=== PATIENT | female | born 1980 | race Two or more races ===

== ENCOUNTER 2017-11-23 10:44 | Day surgery (SDC) | payer BC, OTHER ==
[~2017-11-23 10:44] MED LIST: LIDOCAINE 1% PF 2 ML VIAL. ID; ONDANSETRON PF 4 MG/2 ML VIAL. IV; fentaNYL PF VIAL 100 MCG/2 ML VIAL IV; miSOPROStol 200MCG TAB 200 MCG TABLET
[2017-11-23] MEDS ORDERED: LIDOCAINE 2% PF Vial for OR 5 ML VIAL. (11:24)
[2017-11-23] MEDS ORDERED: ONDANSETRON PF 4 MG/2 ML VIAL. (11:24)
[2017-11-23] MEDS ORDERED: FAMOTIDINE 20 MG/2 ML VIAL (11:24)
[2017-11-23] MEDS ORDERED: PROPOFOL 20 ML IV (11:24)
[2017-11-23] MEDS ORDERED: fentaNYL PF VIAL 100 MCG/2 ML VIAL ×3 (11:24→13:22)
[2017-11-23] MEDS ORDERED: DEXAMETHASONE SOD PHOS 20 MG/5 ML VIAL. (11:24)
[2017-11-23] MEDS ORDERED: MIDAZOLAM HCL/PF 2 MG/2 ML VIAL. (11:24)
[2017-11-23] MEDS: IV RINGERS,LACTATED 1000ML 1,000 ML IV (11:58)
[2017-11-23 12:13] LABS: ADD MAN DIFF? NO; BASO % 0 % (0-3); EOS % 1 % (0-3); HEMOGLOBIN 12.2 g/dL (12.0-15.5); LYMPH # 1.2 x10^3/uL (1.0-4.8); LYMPH % 24 % (24-48); MEAN CORPUSCULAR HEMOGLOBIN 32 pg (25-35); MEAN CORPUSCULAR HGB CONC 35 g/dL (31-37); MEAN CORPUSCULAR VOLUME 93 fL (79-100); MONO # 0.4 x10^3/uL (0.0-1.1); MONO % 7 % (0-9); NEUT # 3.3 x10^3uL (1.8-7.7); NEUT % 67 % (31-73); PLATELET COUNT 154 x10^3/uL (140-400); RED BLOOD COUNT 3.76 x10^6/uL (3.50-5.40); RED CELL DISTRIBUTION WIDTH 13.4 % (11.5-14.5); WHITE BLOOD COUNT 4.9 x10^3/uL (4.0-11.0)
[2017-11-23] MEDS ORDERED: OXYTOCIN 10 UNIT/ML VIAL. (12:34)
[2017-11-23] MEDS ORDERED: SEVOFLURANE 16 TO 30 MINUTES. IH (12:36)
[2017-11-23] MEDS ORDERED: PROCHLORPERAZINE 10 MG/2 ML VIAL. (12:42)
[2017-11-23] MEDS: OXYTOCIN 10 UNIT/ML VIAL. (12:53)
[2017-11-23] MEDS: PROCHLORPERAZINE 10 MG/2 ML VIAL. IV (13:06)
[2017-11-23] MEDS: fentaNYL PF VIAL 100 MCG/2 ML VIAL IV ×4 (13:07→13:36)
[2017-11-23] MEDS ORDERED: HYDROcodone/APAP 5/325MG 1 TAB TABLET (13:22)
[2017-11-23] MEDS: HYDROcodone/APAP 5/325MG 1 TAB TABLET PO (13:27)
== END 2017-11-23 14:20 | disposition home or self-care (01) ==
LOC: SURG 10:44
DX: O03.4 Incomplete spontaneous abortion without complication (principal); Z88.5 Allergy status to narcotic agent; J45.909 Unspecified asthma, uncomplicated; Z87.440 Personal history of urinary (tract) infections; Z98.51 Tubal ligation status
CPT/HCPCS: 36415; 85025; 86850; 86900; 86901; 88305; A7015; C1769; J0780; J1100; J2250; J2405; J2590; J2704; J3010; S0028

== ENCOUNTER 2019-02-19 19:55 | Emergency (ER) | payer BC, OTHER ==
[~2019-02-19] VITALS: Ht 167.6 cm; Wt 82.6 kg
[~2019-02-19 19:55] MED LIST changes: +ALBU2.5V8 INH; +DOXY50CA PO; +HYDR-3164 PO; +IBUP200T44 PO; -LIDOCAINE 1% PF 2 ML VIAL. ID; +METH0.2T36 PO; +METR500T PO; -ONDANSETRON PF 4 MG/2 ML VIAL. IV; -fentaNYL PF VIAL 100 MCG/2 ML VIAL IV; -miSOPROStol 200MCG TAB 200 MCG TABLET
[2019-02-19] MEDS ORDERED: ONDANSETRON PF 4 MG/2 ML VIAL. IV ONE (20:45)
[2019-02-19] MEDS ORDERED: fentaNYL PF VIAL 100 MCG/2 ML VIAL IV ONE ×2 (20:45→23:15)
[2019-02-19] MEDS ORDERED: IV NORMAL SALINE 1000ML BAG 1,000 ML IV ONE (20:45)
[2019-02-19 20:59] LABS: BASO # 0.1 x10^3/uL (0.0-0.2); BASO % 1 % (0-3); EOS # 0.1 x10^3/uL (0.0-0.7); EOS % 1 % (0-3); HEMATOCRIT 37.3 % (36.0-47.0); HEMOGLOBIN 12.5 g/dL (12.0-15.5); LYMPH % 14 % (24-48); MEAN CORPUSCULAR HEMOGLOBIN 31 pg (25-35); MEAN CORPUSCULAR HGB CONC 34 g/dL (31-37); MEAN CORPUSCULAR VOLUME 92 fL (79-100); MONO # 0.5 x10^3/uL (0.0-1.1); MONO % 4 % (0-9); NEUT # 11.1 x10^3/uL (1.8-7.7); NEUT % 81 % (31-73); PLATELET COUNT 186 x10^3/uL (140-400); RED BLOOD COUNT 4.05 x10^6/uL (3.50-5.40); RED CELL DISTRIBUTION WIDTH 13.9 % (11.5-14.5); WHITE BLOOD COUNT 13.7 x10^3/uL (4.0-11.0)
[2019-02-19 21:14] LABS: CALCIUM 9.3 mg/dL (8.5-10.1); CREATININE 0.7 mg/dL (0.6-1.0); GFR 93.2; POTASSIUM 3.7 mmol/L (3.5-5.1)
[2019-02-19 21:20] LABS: ALBUMIN 3.6 g/dL (3.4-5.0); ALBUMIN/GLOBULIN RATIO 0.9 (1.0-1.7); TOTAL BILIRUBIN 0.2 mg/dL (0.2-1.0); TOTAL PROTEIN 7.5 g/dL (6.4-8.2)
[2019-02-19 22:11] LABS: BILIRUBIN,URINE NEGATIVE (NEG); CLARITY,URINE CLEAR; COLOR,URINE YELLOW; NITRITE,URINE NEGATIVE (NEG); PROTEIN,URINE NEGATIVE (NEG-TRACE); UROBILINOGEN,URINE 0.2 mg/dL (0.2 mg/dL)
[2019-02-19 22:17] LABS: BACTERIA,URINE MOD /HPF (0-FEW); RBC,URINE RARE /HPF (0-2); SQUAMOUS EPITHELIAL CELL,UR MOD /LPF
[2019-02-19 22:19] LABS: BARBITURATES NEG (NEG); BENZODIAZEPINES NEG (NEG); CANNABINOIDS NEG (NEG); COCAINE NEG (NEG); METHADONE NEG (NEG); OPIATES NEG (NEG); PHENCYCLIDINE NEG (NEG)
[2019-02-19 22:20] LABS: AMPHETAMINE/METHAMPHETAMINE NEG (NEG)
--- NOTE | 2019-02-19 22:39 | PHYS DOC ---
Past Medical History Past Medical History: No Pertinent History Past Surgical History: Tubal ligation Additional Past Surgical Histo: REVERSAL TUBAL Alcohol Use: None Drug Use: None Adult General Chief Complaint Chief Complaint: ABDOMINAL PAIN HPI HPI Patient is a 38 year old female with new diagnosis of gallstones who presents to the ED today complaining of 10 out of 10 right upper quadrant abdominal pain that has been going on for 1 month and has increasingly gotten worse. She states she was seen at [facility] a month ago and was informed she needs to follow-up with the general surgeon, she states she has an appointment tomorrow at 3 PM but could not wait until then. She presents today hoping we can remove her gallstones. Denies any nausea, vomiting. She states she is currently on hydrocodone as needed for pain. Review of Systems Review of Systems Constitutional: Denies fever or chills [] Eyes: Denies change in visual acuity, redness, or eye pain [] HENT: Denies nasal congestion or sore throat [] Respiratory: Denies cough or shortness of breath [] Cardiovascular: No additional information not addressed in HPI [] GI: Reports RUQ pain, denies nausea, vomiting, bloody stools or diarrhea [] : Denies dysuria or hematuria [] Musculoskeletal: Denies back pain or joint pain [] Integument: Denies rash or skin lesions [] Neurologic: Denies headache, focal weakness or sensory changes [] All other systems were reviewed and found to be within normal limits, except as documented in this note. Current Medications Current Medications Current Medications Medications (Trade) Dose Ordered Sig/[facility] Start Time Stop Time Status Last Admin Dose Admin Fentanyl Citrate (Fentanyl 2ml Vial) 75 mcg 1X ONCE 02/19/19 23:00 02/19/19 23:01 UNV Ondansetron HCl (Zofran) 4 mg 1X ONCE 02/19/19 20:45 02/19/19 20:46 DC 02/19/19 21:07 4 MG Sodium Chloride 1,000 ml @ 1,000 mls/hr 1X ONCE 02/19/19 20:45 02/19/19 21:44 DC 02/19/19 21:07 1,000 MLS/HR Allergies Allergies Allergies Coded Allergies Type Severity Reaction Last Updated Verified morphine Allergy Intermediate RASH, NAUSEA, VOMITING 11/23/17 Yes Physical Exam Physical Exam Constitutional: Well developed, well nourished, no acute distress, non-toxic appearance. [] HENT: Normocephalic, atraumatic, bilateral external ears normal, oropharynx moist, no oral exudates, nose normal. [] Eyes: PERRLA, EOMI, conjunctiva normal, no discharge. [] Neck: Normal range of motion, no tenderness, supple, no stridor. [] Cardiovascular:Heart rate regular rhythm, no murmur [] Lungs & Thorax: Bilateral breath sounds clear to auscultation [] Abdomen: Bowel sounds normal, soft, tenderness the right upper quadrant with negative Muir sign, no masses, no pulsatile masses. [] Skin: Warm, dry, no erythema, no rash. [] Back: No tenderness, no CVA tenderness. [] Extremities: No tenderness, no cyanosis, no clubbing, ROM intact, no edema. [] Neurologic: Alert and oriented X 3, normal motor function, normal sensory function, no focal deficits noted. [] Psychologic: Affect normal, judgement normal, mood normal. [] Current Patient Data Vital Signs Vital Signs Date Time Temp Pulse Resp B/P (MAP) Pulse Ox O2 Delivery O2 Flow Rate FiO2 02/19/19 22:15 63 16 103/58 (73) 100 Room Air 02/19/19 20:12 98.4 98.4 Lab Values Laboratory Tests Test 02/19/19 20:55 02/19/19 22:05 White Blood Count 13.7 x10^3/uL (4.0-11.0) H Red Blood Count 4.05 x10^6/uL (3.50-5.40) Hemoglobin 12.5 g/dL (12.0-15.5) Hematocrit 37.3 % (36.0-47.0) Mean Corpuscular Volume 92 fL (79-100) Mean Corpuscular Hemoglobin 31 pg (25-35) Mean Corpuscular Hemoglobin Concent 34 g/dL (31-37) Red Cell Distribution Width 13.9 % (11.5-14.5) Platelet Count 186 x10^3/uL (140-400) Neutrophils (%) (Auto) 81 % (31-73) H Lymphocytes (%) (Auto) 14 % (24-48) L Monocytes (%) (Auto) 4 % (0-9) Eosinophils (%) (Auto) 1 % (0-3) Basophils (%) (Auto) 1 % (0-3) Neutrophils # (Auto) 11.1 x10^3/uL (1.8-7.7) H Lymphocytes # (Auto) 2.0 x10^3/uL (1.0-4.8) Monocytes # (Auto) 0.5 x10^3/uL (0.0-1.1) Eosinophils # (Auto) 0.1 x10^3/uL (0.0-0.7) Basophils # (Auto) 0.1 x10^3/uL (0.0-0.2) Sodium Level 144 mmol/L (136-145) Potassium Level 3.7 mmol/L (3.5-5.1) Chloride Level 105 mmol/L (98-107) Carbon Dioxide Level 27 mmol/L (21-32) Anion Gap 12 (6-14) Blood Urea Nitrogen 13 mg/dL (7-20) Creatinine 0.7 mg/dL (0.6-1.0) Estimated GFR (Cockcroft-Gault) 93.2 BUN/Creatinine Ratio 19 (6-20) Glucose Level 132 mg/dL (70-99) H Calcium Level 9.3 mg/dL (8.5-10.1) Total Bilirubin 0.2 mg/dL (0.2-1.0) Aspartate Amino Transferase (AST) 32 U/L (15-37) Alanine Aminotransferase (ALT) 32 U/L (14-59) Alkaline Phosphatase 124 U/L (46-116) H Total Protein 7.5 g/dL (6.4-8.2) Albumin 3.6 g/dL (3.4-5.0) Albumin/Globulin Ratio 0.9 (1.0-1.7) L Lipase 126 U/L (73-393) Ethyl Alcohol Level < 10 mg/dL (0-10) Urine Collection Type Unknown Urine Color Yellow Urine Clarity Clear Urine pH 7.0 Urine Specific [place] <=1.005 Urine Protein Negative mg/dL (NEG-TRACE) Urine Glucose (UA) Negative mg/dL (NEG) Urine Ketones (Stick) Negative mg/dL (NEG) Urine Blood Negative (NEG) Urine Nitrite Negative (NEG) Urine Bilirubin Negative (NEG) Urine Urobilinogen Dipstick 0.2 mg/dL (0.2 mg/dL) Urine Leukocyte Esterase Trace (NEG) Urine RBC Rare /HPF (0-2) Urine WBC 5-10 /HPF (0-4) Urine Squamous Epithelial Cells Mod /LPF Urine Bacteria Mod /HPF (0-FEW) Urine Mucus Slight /LPF Urine Opiates Screen Neg (NEG) Urine Methadone Screen Neg (NEG) Urine Barbiturates Neg (NEG) Urine Phencyclidine Screen Neg (NEG) Urine Amphetamine/Methamphetamine Neg (NEG) Urine Benzodiazepines Screen Neg (NEG) Urine Cocaine Screen Neg (NEG) Urine Cannabinoids Screen Neg (NEG) Urine Ethyl Alcohol Neg (NEG) Laboratory Tests 02/19/19 20:55 Laboratory Tests 02/19/19 20:55 EKG EKG [] Radiology/Procedures Radiology/Procedures []PROCEDURE: ABDOMEN LTD Ultrasound of the right upper quadrant of the abdomen 02/19/2019 CLINICAL HISTORY: Right upper quadrant abdominal pain. TECHNIQUE: A Real-time ultrasound examination of the right upper quadrant abdomen was performed. Multiple images were obtained. FINDINGS: The gallbladder is slightly contracted. Echogenic gallstones are seen within the gallbladder. The gallbladder wall thickness is within normal limits. No pericholecystic fluid is seen. The common bile duct measures 7 mm in diameter which is within normal limits. The liver is normal in size measuring 17 cm in length. Increased echogenicity of the liver parenchyma seen consistent with fatty infiltration. The right kidney and visualized portions of pancreas are within normal limits. No free fluid is seen. IMPRESSION: 1. Cholelithiasis. 2. Fatty infiltration of the liver. Electronically signed by: Bertrand Garcia MD (02/19/2019 10:36 PM) [facility] DICTATED and SIGNED BY: BERTRAND GARCIA MD DATE: 02/19/19 2236 Course & Med Decision Making Course & Med Decision Making Pertinent Labs and Imaging studies reviewed. (See chart for details) This is a 38-year-old female patient who presents to the ED today complaining of right upper quadrant abdominal pain that has been going on for 1 month, patient was diagnosed with gallstones a month ago, she has an appointment with the general surgeon tomorrow at 3 PM, she could not wait until then she states her pain has continued. CBC with a WBC of 13.7, CMP with normal AST, normal AST, ALK 127. Vitals are stable, Right upper quadrant limited ultrasound noted for cholelithiasis no cholecystitis Patient has an appointment with a general surgeon tomorrow at 3 PM. Was advised to go home and follow-up. Dragon Disclaimer Dragon Disclaimer This electronic medical record was generated, in whole or in part, using a voice recognition dictation system. Departure Departure Impression: Primary Impression: Gallstone Disposition: ADMITTED INPATIENT Condition: STABLE Referrals: EUNICE ORDONEZ MD (PCP) Follow-up with the general surgeon on the one provided BETTY TURNER MD follow up with your general surgeon or the one we have provided Patient Instructions: Cholelithiasis Additional Instructions: You were seen in the emergency room and noted to have gallstones. You have an appointment with your general surgeon tomorrow, ensure you follow-up. Take the medicine you have at home as needed for pain. Scripts Hydrocodone/Apap 5-325 (NORCO 5-325 TABLET) 1 Each Tablet 1-2 TAB PO Q4-6HRS PRN for PAIN MDD 8, #20 TAB Prov: JOEL SKY DIGITAL MEDIA COORDINATOR 02/19/19 Problem Qualifiers Primary Impression: Gallstone Cholecystitis presence: without cholecystitis Biliary obstruction: without biliary obstruction Qualified Codes: K80.20 - Calculus of gallbladder without cholecystitis without obstruction JOEL SKY DIGITAL MEDIA COORDINATOR Feb 19, 2019 22:39
[2019-02-19] MEDS ORDERED: HYDR-3164 PO (23:06)
[2019-02-19 23:30] VITALS: BP 109/56
== END 2019-02-19 23:35 | disposition home or self-care (01) ==
LOC: ER 19:55
DX: K80.20 Calculus of gallbladder without cholecystitis without obstruction (principal); K76.0 Fatty (change of) liver, not elsewhere classified; Z98.51 Tubal ligation status; Z88.5 Allergy status to narcotic agent
CPT/HCPCS: 36415; 76705; 80053; 80307; 81001; 83690; 85025; 96374; 96375; 96376; 99285; G0480; J2405; J3010; J7030

== ENCOUNTER 2020-09-16 19:42 | Inpatient (IN) | payer BC, OTHER ==
[~2020-09-16] VITALS: Ht 170.2 cm; Wt 91.6 kg
[2020-09-16] MEDS ORDERED: methylPREDNISolone SOD SUCC PF 125 MG/2 ML VIAL. ONE (19:53)
[2020-09-16] MEDS ORDERED: FAMOTIDINE 20 MG/2 ML VIAL ONE (19:53)
[2020-09-16] MEDS ORDERED: diphenhydrAMINE 50 MG/ML VIAL ONE (19:53)
[2020-09-16] MEDS ORDERED: DEXAMETHASONE SOD PHOS 20 MG/5 ML VIAL. IV ONE (20:00)
[2020-09-16] MEDS ORDERED: IV NORMAL SALINE 1000ML BAG 1,000 ML IV ONE (20:00)
[2020-09-16] MEDS ORDERED: FAMOTIDINE 20 MG/2 ML VIAL IVP ONE (20:00)
[2020-09-16] MEDS ORDERED: diphenhydrAMINE 50 MG/ML VIAL IVP ONE ×2 (20:00→20:45)
[2020-09-16 21:57] LABS: BASO # 0.1 x10^3/uL (0.0-0.2); BASO % 1 % (0-3); EOS # 0.1 x10^3/uL (0.0-0.7); EOS % 1 % (0-3); HEMATOCRIT 37.7 % (36.0-47.0); HEMOGLOBIN 12.8 g/dL (12.0-15.5); LYMPH % 17 % (24-48); MEAN CORPUSCULAR HEMOGLOBIN 32 pg (25-35); MEAN CORPUSCULAR HGB CONC 34 g/dL (31-37); MEAN CORPUSCULAR VOLUME 94 fL (79-100); MONO # 0.5 x10^3/uL (0.0-1.1); MONO % 5 % (0-9); NEUT # 8.9 x10^3/uL (1.8-7.7); NEUT % 77 % (31-73); PLATELET COUNT 202 x10^3/uL (140-400); RED BLOOD COUNT 4.03 x10^6/uL (3.50-5.40); RED CELL DISTRIBUTION WIDTH 13.4 % (11.5-14.5); WHITE BLOOD COUNT 11.7 x10^3/uL (4.0-11.0)
--- NOTE | 2020-09-16 22:01 | PHYS DOC ---
Past Medical History Past Medical History: No Pertinent History, Other Additional Past Medical Histor: 1 miscarriage Past Surgical History: Tubal ligation Additional Past Surgical Histo: REVERSAL TUBAL Smoking Status: Never Smoker Alcohol Use: None Drug Use: None General Adult EDM: Chief Complaint: ALLERGIC REACTION HPI: HPI: 39 yo F presents to the ed with c/o pruritic rash over right arm and facial swelling/redness that started Monday night. States she ate shrimp/tilapia at a friends house on Monday and was outside on Monday. Has a h/o poison cristy, no history of angioedema, anaphylaxis or similar allergic reaction. Was seen by Dr. Paniagua yesterday and started on prednisone 50 mg, has not taken this medication today. Was also given a shot in the arm yesterday. Is not taking any lisinopril. Reports she is , has taken 4 home test. Has not had any ultrasound to confirm IUP. History of tubal ligation with reversal. Does not have any difficulties breathing, drooling, spitting, speech changes, abdominal or back pain, abdominal vaginal discharge/bleeding, dysuria, hematuria or flank pain. Patient with pictures of her face and her iPhone from Monday and Monday. Review of Systems: Review of Systems: Constitutional: Denies fever or chills. [] Eyes: Denies change in visual acuity or vision loss HENT: Denies nasal congestion or sore throat or drooling or speech changes Respiratory: Denies cough or shortness of breath or dyspnea or increased work of breathing Cardiovascular: Denies chest pain or edema. [] GI: Denies abdominal pain, nausea, vomiting, bloody stools or diarrhea. [] : Denies dysuria or hematuria Musculoskeletal: Denies back pain or joint pain. [] Integument: Denies diaphoresis, blisters or desquamation Neurologic: Denies headache, focal weakness or sensory changes. [] Endocrine: Denies polyuria or polydipsia. [] Lymphatic: Denies swollen glands. [] Psychiatric: Denies depression or anxiety. [] Heart Score: C/O Chest Pain: No Risk Factors: Risk Factors: DM, Current or recent (<one month) smoker, HTN, HLP, family history of CAD, obesity. Risk Scores: Score 0 - 3: 2.5% MACE over next 6 weeks - Discharge Home Score 4 - 6: 20.3% MACE over next 6 weeks - Admit for Clinical Observation Score 7 - 10: 72.7% MACE over next 6 weeks - Early Invasive Strategies Current Medications: Current Medications Medications (Trade) Dose Ordered Sig/[facility] Start Time Stop Time Status Last Admin Dose Admin Dexamethasone Sodium Phosphate (Decadron) 10 mg 1X ONCE 09/16/20 20:00 09/16/20 20:01 DC 09/16/20 20:10 10 MG Diphenhydramine HCl (Benadryl) 50 mg 1X ONCE 09/16/20 20:45 09/16/20 20:46 DC 09/16/20 20:42 50 MG Famotidine (Pepcid Vial) 20 mg STK-MED ONCE 09/16/20 19:53 09/16/20 19:54 DC Methylprednisolone Sodium Succinate (SOLU-Medrol 125MG VIAL) 125 mg STK-MED ONCE 09/16/20 19:53 09/16/20 19:54 DC Sodium Chloride 1,000 ml @ 1,000 mls/hr 1X ONCE 09/16/20 20:00 09/16/20 20:59 DC 09/16/20 20:02 1,000 MLS/HR Allergies: Allergies: Allergies Coded Allergies Type Severity Reaction Last Updated Verified morphine Allergy Intermediate RASH, NAUSEA, VOMITING 11/23/17 Yes Physical Exam: PE: Constitutional: Well developed, well nourished, no acute distress, non-toxic appearance. HENT: Normocephalic, atraumatic, phone pictures with progressive worsening facial swelling over both cheeks and upper eyelids worse over right eye than left-right eye almost swollen shut, uvula midline, no oropharyngeal edema, no oral lesions or ulcers Eyes: EOMI, conjunctiva normal, no discharge. Neck: Normal range of motion, supple, Cardiovascular: S1/2 present, regular rhythm Lungs & Thorax: Speaking in full sentences, bilateral equal chest rise, no tachypnea or increased work of breathing, no drooling or muffled speech Abdomen: soft, no tenderness, Skin: Warm, dry, erythematous rash over mid arm, negative Nikolsky sign Back: No tenderness, no CVA tenderness. [] Extremities: No tenderness, no cyanosis, no lower extremity edema Neurologic: Alert and oriented X 3, normal motor function, normal sensory function, no focal deficits noted. [] Psychologic: Affect normal, judgement normal, mood normal. [] Current Patient Data: Labs: Laboratory Tests Test 09/16/20 19:52 POC Urine HCG, Qualitative Hcg positive (Negative) Vital Signs: Vital Signs Date Time Temp Pulse Resp B/P (MAP) Pulse Ox O2 Delivery O2 Flow Rate FiO2 09/16/20 21:00 72 16 111/62 (78) 100 Room Air 09/16/20 19:45 98.2 98.2 EKG: EKG: [] Radiology/Procedures: Radiology/Procedures: [] Course & Med Decision Making: Course & Med Decision Making Pertinent Labs and Imaging studies reviewed. (See chart for details) Concern for allergic reaction with angioedema that failed outpatient antibiotics, symptoms have been worsening since Monday. Patient not on any lisinopril. Airway patent with clear speech, no drooling. Some improvement wi th Pepcid, dexamethasone and Benadryl in ED. Labs pending for early . Will order ultrasound in am (has no active abdominal/back/vaginal bleeding or vaginal discharge-no indication for emergent imaging at this time). Hypokalemia on labs, replacement started in ED. Will admit for further medical management. Patient stable at time of admission and agrees with this plan. I have spoken with the patient and/or caregivers. I have explained the patient's condition, diagnosis and treatment plan based on the information available to me at this time. I have answered the patient's and/or caregivers questions and answered any concerns. The patient and/or caregivers have as good an understanding of the patient's diagnosis, condition and treatment plan as can be expected at this point. The patient has been stabilized within the capability of the emergency department. The patient will be transported for further care and management or will be moved to an observation or inpatient service. I have communicated with the staff or medical practitioner taking over this patient's care. Dragon Disclaimer: Dragmelo Disclaimer: This electronic medical record was generated, in whole or in part, using a voice recognition dictation system. Departure Departure Impression: Primary Impression: Angioedema Additional Impressions: Positive test Hypokalemia Disposition: ADMITTED INPT THIS HOSP Admitting Physician: EDEL (Dr. Murillo) Condition: STABLE Referrals: EUNICE ORDONEZ MD (PCP) LUDIN MILLER DO Sep 16, 2020 22:01
[2020-09-16 22:06] LABS: PROTHROMBIN TIME PATIENT 11.1 SEC (11.7-14.0)
[2020-09-16 22:15] LABS: ALBUMIN 3.4 g/dL (3.4-5.0); ALBUMIN/GLOBULIN RATIO 0.8 (1.0-1.7); CALCIUM 9.3 mg/dL (8.5-10.1); CREATININE 0.6 mg/dL (0.6-1.0); GFR 110.7; TOTAL BILIRUBIN 0.2 mg/dL (0.2-1.0); TOTAL PROTEIN 7.5 g/dL (6.4-8.2)
[2020-09-16 22:19] LABS: POTASSIUM 2.8 mmol/L (3.5-5.1)
[2020-09-16] MEDS ORDERED: POTASSIUM BICARB 20 MEQ EFFERVESCENT TABLET. PO ONE (23:00)
--- NOTE | 2020-09-17 00:41 | NUR ---
Dr. Murillo notified of patient c/o pain to face and BLE numbness. New order for 1x dose benadryl, recheck labs in AM.
[2020-09-17] MEDS ORDERED: diphenhydrAMINE 50 MG/ML VIAL IVP ONE (01:00)
[2020-09-17 03:00] VITALS: BP 106/60
[2020-09-17 06:12] LABS: BASO % 0 % (0-3); EOS % 0 % (0-3); HEMATOCRIT 34.8 % (36.0-47.0); HEMOGLOBIN 11.9 g/dL (12.0-15.5); LYMPH # 0.8 x10^3/uL (1.0-4.8); LYMPH % 9 % (24-48); MEAN CORPUSCULAR HEMOGLOBIN 32 pg (25-35); MEAN CORPUSCULAR HGB CONC 34 g/dL (31-37); MEAN CORPUSCULAR VOLUME 93 fL (79-100); MONO # 0.1 x10^3/uL (0.0-1.1); MONO % 1 % (0-9); NEUT # 8.5 x10^3/uL (1.8-7.7); NEUT % 90 % (31-73); PLATELET COUNT 195 x10^3/uL (140-400); RED BLOOD COUNT 3.73 x10^6/uL (3.50-5.40); WHITE BLOOD COUNT 9.4 x10^3/uL (4.0-11.0)
[2020-09-17 06:34] LABS: ALBUMIN 2.8 g/dL (3.4-5.0); ALBUMIN/GLOBULIN RATIO 0.7 (1.0-1.7); CALCIUM 8.4 mg/dL (8.5-10.1); CREATININE 0.6 mg/dL (0.6-1.0); GFR 110.7; POTASSIUM 3.9 mmol/L (3.5-5.1); TOTAL BILIRUBIN 0.2 mg/dL (0.2-1.0); TOTAL PROTEIN 6.7 g/dL (6.4-8.2)
[2020-09-17 07:00] VITALS: BP 111/63
--- NOTE | 2020-09-17 08:05 | PDOC1 ---
History and Physical Date of Service: DOS: DATE: 09/17/20 TIME: 07:57 Chief Complaint: Chief Complain: Facial swelling and redness History of Present Illness: HPI: 39 yo F presents to the ed with c/o pruritic rash over right arm and facial swelling/redness that started Monday night. States she ate shrimp/tilapia at a friends house on Monday and was outside on Monday. Has a h/o poison cristy, no history of angioedema, anaphylaxis or similar allergic reaction. Was seen by Dr. Paniagua yesterday and started on prednisone 50 mg, has not taken this medication today. Was also given a shot in the arm yesterday. Is not taking any lisinopril. Reports she is , has taken 4 home test. Has not had any ultrasound to confirm IUP. History of tubal ligation with reversal. Does not have any difficulties breathing, drooling, spitting, speech changes, abdominal or back pain, abdominal vaginal discharge/bleeding, dysuria, hematuria or flank pain. Patient with pictures of her face and her iPhone from Monday and Monday. Patient seen and examined this morning on the barraza. Patient continues to have some pressure and shortness of breath while lying flat. There is no stridor or wheezing audible. She says the swelling has decreased in size and there is some pressure in the back of her neck in front of her head still. She would like to stay 1 more day because she is feels uncomfortable with taking deep breaths and while she is at home she is not able to breathe. Past Medical/Surgical History: PMH/PSH: Past Medical History: No Pertinent History,1 miscarriage Past Surgical History: Tubal ligation, REVERSAL TUBAL Allergies: Allergies: Coded Allergies: shrimp (Verified Allergy, Severe, 09/17/20) unknown if current angioedema related to shrimp consumption morphine (Verified Allergy, Intermediate, RASH, NAUSEA, VOMITING, 11/23/17) Family History: Family History: Reviewed with no relevant findings Social History: Social History: Smoking Status: Never Smoker Alcohol Use: None Drug Use: None Current Medications: Current Medications Current Medications Dexamethasone Sodium Phosphate (Decadron) 10 mg 1X ONCE IV Last administered o n 09/16/20at 20:10; Start 09/16/20 at 20:00; Stop 09/16/20 at 20:01; Status DC Diphenhydramine HCl (Benadryl) 25 mg 1X ONCE IVP ; Start 09/16/20 at 20:00; Stop 09/16/20 at 20:01; Status Cancel Famotidine (Pepcid Vial) 20 mg 1X ONCE IVP Last administered on 09/16/20at 20:04; Start 09/16/20 at 20:00; Stop 09/16/20 at 20:01; Status DC Sodium Chloride 1,000 ml @ 1,000 mls/hr 1X ONCE IV Last administered on 09/16/20at 20:02; Start 09/16/20 at 20:00; Stop 09/16/20 at 20:59; Status DC Diphenhydramine HCl (Benadryl) 50 mg STK-MED ONCE .ROUTE ; Start 09/16/20 at 19:53; Stop 09/16/20 at 19:54; Status DC Famotidine (Pepcid Vial) 20 mg STK-MED ONCE .ROUTE ; Start 09/16/20 at 19:53; Stop 09/16/20 at 19:54; Status DC Methylprednisolone Sodium Succinate (SOLU-Medrol 125MG VIAL) 125 mg STK-MED ONCE .ROUTE ; Start 09/16/20 at 19:53; Stop 09/16/20 at 19:54; Status DC Diphenhydramine HCl (Benadryl) 50 mg 1X ONCE IVP Last administered on 09/16/20at 20:42; Start 09/16/20 at 20:45; Stop 09/16/20 at 20:46; Status DC Potassium Bicarbonate (Potassium Effervescent Tablet) 40 meq 1X ONCE PO Last administered on 09/16/20at 22:57; Start 09/16/20 at 23:00; Stop 09/16/20 at 23:01; Status DC Diphenhydramine HCl (Benadryl) 50 mg 1X ONCE IVP Last administered on 09/17/20at 00:54; Start 09/17/20 at 01:00; Stop 09/17/20 at 01:01; Status DC Acetaminophen (Tylenol) 650 mg PRN Q6HRS PRN PO MILD PAIN / TEMP > 100.3'F; Start 09/17/20 at 00:45 Diphenhydramine HCl (Benadryl) 25 mg PRN Q6HRS PRN IVP ITCHING; Start 09/17/20 at 07:15 Active Scripts Active Reported Proair Hfa Inhaler (Albuterol Sulfate) 8.5 Gm Hfa.aer.ad 1 Puff INH PRN Q6HRS PRN ROS: Review of Systems Review of System REVIEW OF SYSTEMS: GENERAL: Denies weakness SKIN: No bruising, hair changes or rashes. EYES: No blurred, double or loss of vision. NOSE AND THROAT: No history of nosebleeds, hoarseness or sore throat. HEART: No history of palpitations, chest pain or shortness of breath on exertion. LUNGS: Denies cough, hemoptysis, wheezing or shortness of breath. GASTROINTESTINAL: Denies changes in appetite, nausea, vomiting, diarrhea or constipation. GENITOURINARY: No history of frequency, urgency, hesitancy or nocturia. NEUROLOGIC: Denies history of numbness, tingling, or tremor. PSYCHIATRIC: No history of panic, anxiety or depression. ENDOCRINE: No history of heat or cold intolerance, polyuria or polydipsia. EXTREMITIES: Denies joint pain, pain on walking or stiffness. Physical Exam: Vital Signs: Vital Signs Date Time Temp Pulse Resp B/P (MAP) Pulse Ox O2 Delivery O2 Flow Rate FiO2 09/17/20 03:00 98.4 88 18 106/60 (75) 98 Room Air 98.4 Physcial Exam: GEN: No apparent distress. Alert and oriented HEENT: Normal cephalic, atraumatic, external auditory canals are patent EYES: Extraocular muscles are intact, pupil are equally round and reactive to light and accommodation MUSCULOSKELETAL: Well developed , well nourished, good range of motion ENDOCRINE: No thyromegaly was palpated LYMPHATICS: No cervical chain or axillary nodes were noted HEMATOPOIETIC: No bruising NECK: Supple, no JVD, no thyromegaly was noted LUNGS: Clear to auscultation in all lung arroyo without rhonchi or wheezing HEART: RRR, S!, S2 present. Peripheral pulses intact, no obvious murmurs noted ABDOMEN: Soft, nontender. Positive bowel sounds, no organomegaly, normal bowel sounds EXTREMITIES: Without clubbing, cyanosis, or edema. Pedal pulses intact. Negative Homans sign NEUROLOGIC: Normal speech and tone. A&O x 3, moves all extremities, no obvious focal deficits PSYCHIATRIC: Normal affect, normal mood. Stable SKIN: No ulcerations or rashes, good skin turgor, no jaundice VASCULAR: Good capillary refill, neurovascular bundle appears to be intact Labs: Labs: Laboratory Tests Test 09/16/20 19:52 09/16/20 19:55 09/17/20 05:35 Bedside Urine HCG, Qualitative Hcg positive (Negative) White Blood Count 11.7 x10^3/uL (4.0-11.0) 9.4 x10^3/uL (4.0-11.0) Red Blood Count 4.03 x10^6/uL (3.50-5.40) 3.73 x10^6/uL (3.50-5.40) Hemoglobin 12.8 g/dL (12.0-15.5) 11.9 g/dL (12.0-15.5) Hematocrit 37.7 % (36.0-47.0) 34.8 % (36.0-47.0) Mean Corpuscular Volume 94 fL (79-100) 93 fL (79-100) Mean Corpuscular Hemoglobin 32 pg (25-35) 32 pg (25-35) Mean Corpuscular Hemoglobin Concent 34 g/dL (31-37) 34 g/dL (31-37) Red Cell Distribution Width 13.4 % (11.5-14.5) 13.0 % (11.5-14.5) Platelet Count 202 x10^3/uL (140-400) 195 x10^3/uL (140-400) Neutrophils (%) (Auto) 77 % (31-73) 90 % (31-73) Lymphocytes (%) (Auto) 17 % (24-48) 9 % (24-48) Monocytes (%) (Auto) 5 % (0-9) 1 % (0-9) Eosinophils (%) (Auto) 1 % (0-3) 0 % (0-3) Basophils (%) (Auto) 1 % (0-3) 0 % (0-3) Neutrophils # (Auto) 8.9 x10^3/uL (1.8-7.7) 8.5 x10^3/uL (1.8-7.7) Lymphocytes # (Auto) 2.0 x10^3/uL (1.0-4.8) 0.8 x10^3/uL (1.0-4.8) Monocytes # (Auto) 0.5 x10^3/uL (0.0-1.1) 0.1 x10^3/uL (0.0-1.1) Eosinophils # (Auto) 0.1 x10^3/uL (0.0-0.7) 0.0 x10^3/uL (0.0-0.7) Basophils # (Auto) 0.1 x10^3/uL (0.0-0.2) 0.0 x10^3/uL (0.0-0.2) Prothrombin Time 11.1 SEC (11.7-14.0) Prothromb Time International Ratio 0.8 (0.8-1.1) Activated Partial Thromboplast Time 32 SEC (24-38) Maternal Serum HCG Beta Subunit 972986 mIU/mL (0-5) Sodium Level 143 mmol/L (136-145) 141 mmol/L (136-145) Potassium Level 2.8 mmol/L (3.5-5.1) 3.9 mmol/L (3.5-5.1) Chloride Level 105 mmol/L (98-107) 107 mmol/L (98-107) Carbon Dioxide Level 26 mmol/L (21-32) 22 mmol/L (21-32) Anion Gap 12 (6-14) 12 (6-14) Blood Urea Nitrogen 8 mg/dL (7-20) 7 mg/dL (7-20) Creatinine 0.6 mg/dL (0.6-1.0) 0.6 mg/dL (0.6-1.0) Estimated GFR (Cockcroft-Gault) 110.7 110.7 BUN/Creatinine Ratio 13 (6-20) 12 (6-20) Glucose Level 93 mg/dL (70-99) 127 mg/dL (70-99) Calcium Level 9.3 mg/dL (8.5-10.1) 8.4 mg/dL (8.5-10.1) Magnesium Level 2.0 mg/dL (1.8-2.4) Total Bilirubin 0.2 mg/dL (0.2-1.0) 0.2 mg/dL (0.2-1.0) Aspartate Amino Transf (AST/SGOT) 21 U/L (15-37) 16 U/L (15-37) Alanine Aminotransferase (ALT/SGPT) 19 U/L (14-59) 19 U/L (14-59) Alkaline Phosphatase 91 U/L (46-116) 72 U/L (46-116) Total Protein 7.5 g/dL (6.4-8.2) 6.7 g/dL (6.4-8.2) Albumin 3.4 g/dL (3.4-5.0) 2.8 g/dL (3.4-5.0) Albumin/Globulin Ratio 0.8 (1.0-1.7) 0.7 (1.0-1.7) Laboratory Tests Test 09/16/20 19:52 09/16/20 19:55 09/17/20 05:35 Bedside Urine HCG, Qualitative Hcg positive (Negative) White Blood Count 11.7 x10^3/uL (4.0-11.0) 9.4 x10^3/uL (4.0-11.0) Red Blood Count 4.03 x10^6/uL (3.50-5.40) 3.73 x10^6/uL (3.50-5.40) Hemoglobin 12.8 g/dL (12.0-15.5) 11.9 g/dL (12.0-15.5) Hematocrit 37.7 % (36.0-47.0) 34.8 % (36.0-47.0) Mean Corpuscular Volume 94 fL (79-100) 93 fL (79-100) Mean Corpuscular Hemoglobin 32 pg (25-35) 32 pg (25-35) Mean Corpuscular Hemoglobin Concent 34 g/dL (31-37) 34 g/dL (31-37) Red Cell Distribution Width 13.4 % (11.5-14.5) 13.0 % (11.5-14.5) Platelet Count 202 x10^3/uL (140-400) 195 x10^3/uL (140-400) Neutrophils (%) (Auto) 77 % (31-73) 90 % (31-73) Lymphocytes (%) (Auto) 17 % (24-48) 9 % (24-48) Monocytes (%) (Auto) 5 % (0-9) 1 % (0-9) Eosinophils (%) (Auto) 1 % (0-3) 0 % (0-3) Basophils (%) (Auto) 1 % (0-3) 0 % (0-3) Neutrophils # (Auto) 8.9 x10^3/uL (1.8-7.7) 8.5 x10^3/uL (1.8-7.7) Lymphocytes # (Auto) 2.0 x10^3/uL (1.0-4.8) 0.8 x10^3/uL (1.0-4.8) Monocytes # (Auto) 0.5 x10^3/uL (0.0-1.1) 0.1 x10^3/uL (0.0-1.1) Eosinophils # (Auto) 0.1 x10^3/uL (0.0-0.7) 0.0 x10^3/uL (0.0-0.7) Basophils # (Auto) 0.1 x10^3/uL (0.0-0.2) 0.0 x10^3/uL (0.0-0.2) Prothrombin Time 11.1 SEC (11.7-14.0) Prothromb Time International Ratio 0.8 (0.8-1.1) Activated Partial Thromboplast Time 32 SEC (24-38) Maternal Serum HCG Beta Subunit 117667 mIU/mL (0-5) Sodium Level 143 mmol/L (136-145) 141 mmol/L (136-145) Potassium Level 2.8 mmol/L (3.5-5.1) 3.9 mmol/L (3.5-5.1) Chloride Level 105 mmol/L (98-107) 107 mmol/L (98-107) Carbon Dioxide Level 26 mmol/L (21-32) 22 mmol/L (21-32) Anion Gap 12 (6-14) 12 (6-14) Blood Urea Nitrogen 8 mg/dL (7-20) 7 mg/dL (7-20) Creatinine 0.6 mg/dL (0.6-1.0) 0.6 mg/dL (0.6-1.0) Estimated GFR (Cockcroft-Gault) 110.7 110.7 BUN/Creatinine Ratio 13 (6-20) 12 (6-20) Glucose Level 93 mg/dL (70-99) 127 mg/dL (70-99) Calcium Level 9.3 mg/dL (8.5-10.1) 8.4 mg/dL (8.5-10.1) Magnesium Level 2.0 mg/dL (1.8-2.4) Total Bilirubin 0.2 mg/dL (0.2-1.0) 0.2 mg/dL (0.2-1.0) Aspartate Amino Transf (AST/SGOT) 21 U/L (15-37) 16 U/L (15-37) Alanine Aminotransferase (ALT/SGPT) 19 U/L (14-59) 19 U/L (14-59) Alkaline Phosphatase 91 U/L (46-116) 72 U/L (46-116) Total Protein 7.5 g/dL (6.4-8.2) 6.7 g/dL (6.4-8.2) Albumin 3.4 g/dL (3.4-5.0) 2.8 g/dL (3.4-5.0) Albumin/Globulin Ratio 0.8 (1.0-1.7) 0.7 (1.0-1.7) Images: Images Pending pelvic ultrasound report Assessment/Plan Assessment/Plan Acute facial swelling secondary to food allergy, concerning for angioedema Hypokalemia Anemia, likely dilutional due to Elevated paternal hCG secondary to , estimated 11 weeks Continue observation Solu-Medrol 40 mg every 8 hours for 1 day Continue Benadryl 25 mg p.o. as needed Continue Pepcid 20 mg p.o. twice daily SCD and ambulation for DVT prophylaxis Pepcid GI prophylaxis Pending C1 and C4 and total complement levels to rule out angioedema ADA diet Full code Discussed with RN and SW Disposition inpatient management as above Surrogate decision maker is the Justifications for Admission Other Justification CORBY WISE MD Sep 17, 2020 08:05
[2020-09-17 09:29] LABS: % BANDS 4 % (0-9); % LYMPHS 7 % (24-48); % SEGS 89 % (35-66); PLT ESTIMATE ADEQUATE (ADEQUATE)
[2020-09-17] MEDS: diphenhydrAMINE 50 MG/ML VIAL IVP PRN ×3 (09:44→23:12)
[2020-09-17 11:00] VITALS: BP 112/63
[2020-09-17] MEDS: FAMOTIDINE 20 MG TABLET. PO SCH ×2 (13:09→20:40)
[2020-09-17] MEDS: methylPREDNISolone SOD SUCC PF 40 MG/ML VIAL. IV SCH ×2 (13:10→20:40)
[2020-09-17 15:00] VITALS: BP 107/64
--- NOTE | 2020-09-17 15:31 | RAD ---
EXAMINATION: US OB 14+ WKS, 09/17/2020 9:17 AM CLINICAL INDICATION: . LMP 07/13/2020. TECHNIQUE: Grayscale, color and spectral Doppler ultrasound images of the pelvis via transabdominal a nd transvaginal approach. COMPARISON: None. FINDINGS: The uterus measures 14 x 9 x 7 cm. There is a living intrauterine gestation with crown-rump length 4. 1 cm consistent with gestational age 11 weeks 0 days. Sonographic EDC 04/08/2021. heart rate is 157 bpm. A yolk sac is visualized. There is a small perigestational hemorrhage measuring 2.2 x 1.9 x 0.5 cm. The right ovary measures 2.6 x 2.2 x 2.1 cm and has normal blood flow. The left ovary is not visualiz ed. No free fluid or adnexal mass. IMPRESSION: 1. Single living intrauterine with gestational age by ultrasound 11 weeks 0 days. This is g reater than reported gestational age by LMP of 9 weeks 3 days. Sonographic EDC is 04/08/2021. 2. Small perigestational hemorrhage. Electronically signed by: Fabi Wilkerson MD (09/17/2020 3:29 PM) [id number]
[2020-09-17] MEDS: ACETAMINOPHEN 325 MG TABLET. PO PRN ×2 (17:11→23:12)
[2020-09-17 19:00] VITALS: BP 103/57
[2020-09-17 23:00] VITALS: BP 108/60
[2020-09-17 23:15] LABS: HEMOGLOBIN A1C 5.1 % (4.8-5.6)
[2020-09-18 03:00] VITALS: BP 96/53
[2020-09-18] MEDS: methylPREDNISolone SOD SUCC PF 40 MG/ML VIAL. IV SCH ×2 (06:07→14:38)
[2020-09-18] MEDS: diphenhydrAMINE 50 MG/ML VIAL IVP PRN (06:14)
[2020-09-18 07:00] VITALS: BP 105/61
[2020-09-18] MEDS: FAMOTIDINE 20 MG TABLET. PO SCH (09:47)
[2020-09-18] MEDS: ACETAMINOPHEN 325 MG TABLET. PO PRN (09:49)
[2020-09-18 11:00] VITALS: BP 112/70
[2020-09-18] MEDS ORDERED: FAMO20TA5 PO (11:30)
[2020-09-18] MEDS ORDERED: DIPH25CA58 PO (11:30)
--- NOTE | 2020-09-18 11:31 | DISCH ---
DISCHARGE INSTRUCTIONS Condition on Discharge Condition on Discharge: Stable Activity After Discharge Activity Instructions for Disc: Resume previous activity, Activity as tolerated Driving Instructions after Dis: Do not drive today Weight Bearing Status after Di: No restrictions Follow-Up Follow up with: PCP within 2 weeks of discharge Follow Up With: Obstetrics CORBY PADILLA MD Sep 18, 2020 11:31
--- NOTE | 2020-09-18 13:49 | NUR ---
SW following for discharge planning. Spoke with RN and reviewed chart. SW met with pt. Pt on room air and oral medications. Discharge home self-care today, 09/18. No further SW needs at this time.
--- NOTE | 2020-09-18 14:16 | PDOC2 ---
CONSULT Date of Consult Date of Consult DATE: 09/18/20 TIME: 14:15 Reason for Consult Reason for Consult: History of Present Illness Reason for Visit: EDC: 04/08/21 LMP: 07/13/20 39y @ 11.1 by 11wk u/s admitted after food allergy. The pt developed symptoms after eating a dish with shrimp. She presented to the ER on Monday and was started on prednisone plus shot. She had been aware she was previously after performing some home test. During the course of her hospitalization she underwent an u/s revealing a viable measuring 11.0wks. A small pregestational hemorrhage was noted. She feels her swelling is a little better since her tx. She has not had any children since her BTL was reversed. PMH: Asthma PSH: BTL, BTL reversal Meds: PNV All: Morphine, shrimp OBHx: TSVD x 5, SAB x 1 [employer]: 14yo / regular SH: no tob, no EtOH FH: DM, CA, asthma Current Problem List Problem List Problems Medical Problems: (1) Angioedema Status: Acute (2) Hypokalemia Status: Acute (3) Positive test Status: Acute Current Medications Current Medications Current Medications Dexamethasone Sodium Phosphate (Decadron) 10 mg 1X ONCE IV Last administered on 09/16/20at 20:10; Start 09/16/20 at 20:00; Stop 09/16/20 at 20:01; Status DC Diphenhydramine HCl (Benadryl) 25 mg 1X ONCE IVP ; Start 09/16/20 at 20:00; Stop 09/16/20 at 20:01; Status Cancel Famotidine (Pepcid Vial) 20 mg 1X ONCE IVP Last administered on 09/16/20at 20:04; Start 09/16/20 at 20:00; Stop 09/16/20 at 20:01; Status DC Sodium Chloride 1,000 ml @ 1,000 mls/hr 1X ONCE IV Last administered on 09/16/20at 20:02; Start 09/16/20 at 20:00; Stop 09/16/20 at 20:59; Status DC Diphenhydramine HCl (Benadryl) 50 mg STK-MED ONCE .ROUTE ; Start 09/16/20 at 19:53; Stop 09/16/20 at 19:54; Status DC Famotidine (Pepcid Vial) 20 mg STK-MED ONCE .ROUTE ; Start 09/16/20 at 19:53; Stop 09/16/20 at 19:54; Status DC Methylprednisolone Sodium Succinate (SOLU-Medrol 125MG VIAL) 125 mg STK-MED ONCE .ROUTE ; Start 09/16/20 at 19:53; Stop 09/16/20 at 19:54; Status DC Diphenhydramine HCl (Benadryl) 50 mg 1X ONCE IVP Last administered on 09/16/20at 20:42; Start 09/16/20 at 20:45; Stop 09/16/20 at 20:46; Status DC Potassium Bicarbonate (Potassium Effervescent Tablet) 40 meq 1X ONCE PO Last administered on 09/16/20at 22:57; Start 09/16/20 at 23:00; Stop 09/16/20 at 23:01; Status DC Diphenhydramine HCl (Benadryl) 50 mg 1X ONCE IVP Last administered on 09/17/20at 00:54; Start 09/17/20 at 01:00; Stop 09/17/20 at 01:01; Status DC Acetaminophen (Tylenol) 650 mg PRN Q6HRS PRN PO MILD PAIN / TEMP > 100.3'F Last administered on 09/18/20at 09:49; Start 09/17/20 at 00:45 Diphenhydramine HCl (Benadryl) 25 mg PRN Q6HRS PRN IVP ITCHING Last administered on 09/18/20at 06:14; Start 09/17/20 at 07:15 Methylprednisolone Sodium Succinate (SOLU-Medrol 40MG VIAL) 40 mg Q8HRS IV Last administered on 09/18/20 06:07; Start 09/17/20 at 14:00 Famotidine (Pepcid) 20 mg BID PO Last administered on 09/18/20at 09:47; Start 09/17/20 at 12:00 Active Scripts Active Benadryl (Diphenhydramine Hcl) 25 Mg Capsule 25 Mg PO Q6-8HRS PRN 15 Days Famotidine 20 Mg Tablet 20 Mg PO BID 30 Days Reported Proair Hfa Inhaler (Albuterol Sulfate) 8.5 Gm Hfa.aer.ad 1 Puff INH PRN Q6HRS PRN Allergies Allergies: Coded Allergies: shrimp (Verified Allergy, Severe, 09/17/20) unknown if current angioedema related to shrimp consumption morphine (Verified Allergy, Intermediate, RASH, NAUSEA, VOMITING, 11/23/17) Physical Exam General: Alert, Oriented X3, Cooperative, No acute distress HEENT: PERRLA, Mucous membr. moist/pink Lungs: Clear to auscultation, Normal air movement Heart: Regular rate, Normal S1, Normal S2, No murmurs Abdomen: Normal bowel sounds, Soft, No tenderness, No hepatosplenomegaly, No masses Extremities: No clubbing, No cyanosis, No edema, Normal pulses, No tenderness/swelling Skin: No rashes, No breakdown Neuro: Normal gait, Normal speech, Normal tone, Sensation intact, Reflexes 2+ Psych/Mental Status: Mental status NL, Mood NL Vitals VITALS Vital Signs Date Time Temp Pulse Resp B/P (MAP) Pulse Ox O2 Delivery O2 Flow Rate FiO2 09/18/20 11:00 97.8 72 17 112/70 (84) 96 Room Air 97.8 Labs Labs Laboratory Tests Test 09/16/20 19:52 09/16/20 19:55 09/17/20 05:35 Bedside Urine HCG, Qualitative Hcg positive (Negative) White Blood Count 11.7 x10^3/uL (4.0-11.0) 9.4 x10^3/uL (4.0-11.0) Red Blood Count 4.03 x10^6/uL (3.50-5.40) 3.73 x10^6/uL (3.50-5.40) Hemoglobin 12.8 g/dL (12.0-15.5) 11.9 g/dL (12.0-15.5) Hematocrit 37.7 % (36.0-47.0) 34.8 % (36.0-47.0) Mean Corpuscular Volume 94 fL (79-100) 93 fL (79-100) Mean Corpuscular Hemoglobin 32 pg (25-35) 32 pg (25-35) Mean Corpuscular Hemoglobin Concent 34 g/dL (31-37) 34 g/dL (31-37) Red Cell Distribution Width 13.4 % (11.5-14.5) 13.0 % (11.5-14.5) Platelet Count 202 x10^3/uL (140-400) 195 x10^3/uL (140-400) Neutrophils (%) (Auto) 77 % (31-73) 90 % (31-73) Lymphocytes (%) (Auto) 17 % (24-48) 9 % (24-48) Monocytes (%) (Auto) 5 % (0-9) 1 % (0-9) Eosinophils (%) (Auto) 1 % (0-3) 0 % (0-3) Basophils (%) (Auto) 1 % (0-3) 0 % (0-3) Neutrophils # (Auto) 8.9 x10^3/uL (1.8-7.7) 8.5 x10^3/uL (1.8-7.7) Lymphocytes # (Auto) 2.0 x10^3/uL (1.0-4.8) 0.8 x10^3/uL (1.0-4.8) Monocytes # (Auto) 0.5 x10^3/uL (0.0-1.1) 0.1 x10^3/uL (0.0-1.1) Eosinophils # (Auto) 0.1 x10^3/uL (0.0-0.7) 0.0 x10^3/uL (0.0-0.7) Basophils # (Auto) 0.1 x10^3/uL (0.0-0.2) 0.0 x10^3/uL (0.0-0.2) Prothrombin Time 11.1 SEC (11.7-14.0) Prothromb Time International Ratio 0.8 (0.8-1.1) Activated Partial Thromboplast Time 32 SEC (24-38) Maternal Serum HCG Beta Subunit [id number] mIU/mL (0-5) Sodium Level 143 mmol/L (136-145) 141 mmol/L (136-145) Potassium Level 2.8 mmol/L (3.5-5.1) 3.9 mmol/L (3.5-5.1) Chloride Level 105 mmol/L (98-107) 107 mmol/L (98-107) Carbon Dioxide Level 26 mmol/L (21-32) 22 mmol/L (21-32) Anion Gap 12 (6-14) 12 (6-14) Blood Urea Nitrogen 8 mg/dL (7-20) 7 mg/dL (7-20) Creatinine 0.6 mg/dL (0.6-1.0) 0.6 mg/dL (0.6-1.0) Estimated GFR (Cockcroft-Gault) 110.7 110.7 BUN/Creatinine Ratio 13 (6-20) 12 (6-20) Glucose Level 93 mg/dL (70-99) 127 mg/dL (70-99) Calcium Level 9.3 mg/dL (8.5-10.1) 8.4 mg/dL (8.5-10.1) Magnesium Level 2.0 mg/dL (1.8-2.4) Total Bilirubin 0.2 mg/dL (0.2-1.0) 0.2 mg/dL (0.2-1.0) Aspartate Amino Transf (AST/SGOT) 21 U/L (15-37) 16 U/L (15-37) Alanine Aminotransferase (ALT/SGPT) 19 U/L (14-59) 19 U/L (14-59) Alkaline Phosphatase 91 U/L (46-116) 72 U/L (46-116) Total Protein 7.5 g/dL (6.4-8.2) 6.7 g/dL (6.4-8.2) Albumin 3.4 g/dL (3.4-5.0) 2.8 g/dL (3.4-5.0) Albumin/Globulin Ratio 0.8 (1.0-1.7) 0.7 (1.0-1.7) Segmented Neutrophils % 89 % (35-66) Band Neutrophils % 4 % (0-9) Lymphocytes % 7 % (24-48) Platelet Estimate Adequate (ADEQUATE) Hemoglobin A1c 5.1 % (4.8-5.6) Assessment/Plan Assessment/Plan Assessment: 39y @ 11.1 by 11wk admitted for allergic reaction Recommendations: 1.) Allergic reaction on steroids 2.) Steroid exposure Early evidence suggested that glucocorticoid exposure increases the risk of cleft palate formation in fetuses exposed in the first trimester. Steroids necessary due to her allergic reaction. 3.) AMA will offer NIPT testing when seen in the office 4.) Anemia Hgb 11.9 5.) Fetus reassuring for gestational age 6.) H/o BTL reversal 7.) F/u with PCP or in our office GARLAND SCHULTZ MD Sep 18, 2020 14:16
--- NOTE | 2020-09-18 14:47 | NUR ---
CALL PLACED TO DR. Arash SCHULTZ (OBGYN) X2, SPOKE DIRECTLY WITH HIM AND HE INFORMED THIS MUSEUM TECHNICIAN THAT THE PATIENT CAN FOLLOW UP WITH HIM AN OUTPATIENT.
--- NOTE | 2020-09-18 15:10 | NUR ---
DISCHARGE INSTRUCTIONS GIVEN, QUESTIONS AND CONCERNS ANSWERED, PATIENT VERBALIZED UNDERSTANDING OF DISCHARGE INFORMATION INCLUDING TAKING ALL MEDICATIONS INSTRUCTED AND FOLLOWING UP WITH DR. Arash SCHULTZ AN OUTPATIENT, PHONE NUMBER PROVIDED.
--- NOTE | 2020-09-21 08:56 | PDOC3 ---
[facility]-Discharge Summary Date of Admission: Date of Admission: Sep 16, 2020 Date of Discharge: Date of Discharge: Sep 18, 2020 Discharge Diagnosis: Discharge Diagnosis: Acute facial swelling secondary to food allergy, angioedema Hypokalemia Anemia, likely dilutional due to Elevated paternal hCG secondary to , estimated 11 weeks Hospital Course: Hospital Course: 39 yo F presents to the ed with c/o pruritic rash over right arm and facial swelling/redness that started Monday night. States she ate shrimp/tilapia at a friends house on Monday and was outside on Monday. Has a h/o poison cristy, no history of angioedema, anaphylaxis or similar allergic reaction. Was seen by Dr. Paniagua yesterday and started on prednisone 50 mg, has not taken this medication today. Was also given a shot in the arm yesterday. Is not taking any lisinopril. Reports she is , has taken 4 home test. Has not had any ultrasound to confirm IUP. History of tubal ligation with reversal. Does not have any difficulties breathing, drooling, spitting, speech changes, abdominal or back pain, abdominal vaginal discharge/bleeding, dysuria, hematuria or flank pain. Patient with pictures of her face and her iPhone from Monday and Monday. Patient seen and examined this morning on the [place]. Patient continues to have some pressure and shortness of breath while lying flat. There is no stridor or wheezing audible. She says the swelling has decreased in size and there is some pressure in the back of her neck in front of her head still. She would like to stay 1 more day because she is feels uncomfortable with taking deep breaths and while she is at home she is not able to breathe. By day of discharge swelling and redness improved significantly. She was established with Dr Ellis for her care and she will f/u was an outpt as well. Rest of her hospital course was uneventful. Disposition: Disposition/Orders: D/C to Home Activity: Activity: Resume previous activity Diet: Diet: Regular Medications: Home Meds Active Scripts Diphenhydramine Hcl (BENADRYL) 25 Mg Capsule, 25 MG PO Q6-8HRS PRN for ITCHING for 15 Days, #30 CAP Prov:CORBY WISE MD 09/18/20 Famotidine (FAMOTIDINE) 20 Mg Tablet, 20 MG PO BID for dyspepsia for 30 Days, #60 TAB Prov:CORBY WISE MD 09/18/20 Reported Medications Albuterol Sulfate (PROAIR HFA INHALER) 8.5 Gm Hfa.aer.ad, 1 PUFF INH PRN Q6HRS PRN for SHORTNESS OF BREATH, INHALER 0 Refills 11/22/17 Scheduled Famotidine (Famotidine), 20 MG PO BID Scheduled PRN Albuterol Sulfate (Proair Hfa Inhaler), 1 PUFF INH PRN Q6HRS PRN for SHORTNESS OF BREATH, (Reported) Diphenhydramine Hcl (Benadryl), 25 MG PO Q6-8HRS PRN for ITCHING Total Time: Total Time: Total time spent was 35 minutes in preparing scripts, discharge planning with SW and RN, and preparing this discharge summary. Patient seen and examined on day of discharge. Justicifation of Admission Dx: Justifications for Admission: Justification of Admission Dx: Yes Cellulitis: Cellulitis (Angioedema) CORBY WISE MD Sep 21, 2020 08:56
== END 2020-09-18 15:24 | disposition home or self-care (01) | DRG 833 ==
LOC: ER 19:42 → ED HOLD 21:44 → 6 SOUTH 23:51
PROVIDERS: ADMIT Internal Medicine; ATTEND Internal Medicine
DX: O9A.211 Injury, poisoning and certain other consequences of external causes complicating pregnancy, first trimester (principal); T78.3XXA Angioneurotic edema, initial encounter; E87.6 Hypokalemia; D64.9 Anemia, unspecified; O99.281 Endocrine, nutritional and metabolic diseases complicating pregnancy, first trimester; O99.011 Anemia complicating pregnancy, first trimester; J45.909 Unspecified asthma, uncomplicated; O99.511 Diseases of the respiratory system complicating pregnancy, first trimester; L27.2 Dermatitis due to ingested food; O99.711 Diseases of the skin and subcutaneous tissue complicating pregnancy, first trimester; Z3A.11 11 weeks gestation of pregnancy; Y92.89 Other specified places as the place of occurrence of the external cause
CPT/HCPCS: 36415; 76801; 80053; 81025; 83036; 83735; 84702; 85007; 85025; 85610; 85730; 86160; 86162; 96361; 96374; 96375; J1100; J1200; J2920; J3490; J7030; 99285-25; G0378